=== PATIENT | male | born 1975 | race Caucasian/White ===

== ENCOUNTER 2017-07-15 10:36 | Emergency (ER) | payer BC ==
[~2017-07-15] VITALS: Ht 177.8 cm; Wt 72.7 kg
[~2017-07-15 10:36] MED LIST: CYCL-1 PO
[2017-07-15 10:47] VITALS: BP 138/81
[2017-07-15] MEDS ORDERED: HYDR-565 PO (12:32)
== END 2017-07-15 12:50 | disposition home or self-care (01) ==
LOC: ER 10:36
DX: S92.321A Displaced fracture of second metatarsal bone, right foot, initial encounter for closed fracture (principal); S92.331A Displaced fracture of third metatarsal bone, right foot, initial encounter for closed fracture; S92.341A Displaced fracture of fourth metatarsal bone, right foot, initial encounter for closed fracture; W22.8XXA Striking against or struck by other objects, initial encounter; Y93.89 Activity, other specified; Y92.89 Other specified places as the place of occurrence of the external cause; Y99.8 Other external cause status
CPT/HCPCS: 29515; 73630; 99284; A6449

== ENCOUNTER 2017-07-24 13:39 | Outpatient (CLI) | payer BC ==
[2017-07-24 13:55] VITALS: BP 131/79
== END 2017-07-24 14:25 | disposition home or self-care (01) ==
LOC: ORTHO 13:39
PROVIDERS: ATTEND Nurse Practitioner Family
DX: S92.344 Nondisplaced fracture of fourth metatarsal bone, right foot (principal); W18.43XA Slipping, tripping and stumbling without falling due to stepping from one level to another, initial encounter; Y93.89 Activity, other specified; Y92.018 Other place in single-family (private) house as the place of occurrence of the external cause

== ENCOUNTER 2017-08-14 14:27 | Outpatient (CLI) | payer BC ==
[2017-08-14 14:35] VITALS: BP 138/87
== END 2017-08-14 14:50 | disposition home or self-care (01) ==
LOC: ORTHO 14:27
PROVIDERS: ATTEND Nurse Practitioner Family
DX: S92.321G Displaced fracture of second metatarsal bone, right foot, subsequent encounter for fracture with delayed healing (principal); S92.331D Displaced fracture of third metatarsal bone, right foot, subsequent encounter for fracture with routine healing; F17.210 Nicotine dependence, cigarettes, uncomplicated; F12.90 Cannabis use, unspecified, uncomplicated; X58.XXXD Exposure to other specified factors, subsequent encounter
CPT/HCPCS: 73630

== ENCOUNTER 2017-09-11 13:52 | Outpatient (CLI) | payer BC ==
[2017-09-11 13:54] VITALS: BP 123/81
== END 2017-09-11 14:40 | disposition home or self-care (01) ==
LOC: ORTHO 13:52
PROVIDERS: ATTEND Nurse Practitioner Family
DX: S92.321G Displaced fracture of second metatarsal bone, right foot, subsequent encounter for fracture with delayed healing (principal); F17.210 Nicotine dependence, cigarettes, uncomplicated; X58.XXXD Exposure to other specified factors, subsequent encounter
CPT/HCPCS: 73630; 99213

== ENCOUNTER 2017-10-09 11:23 | Outpatient (CLI) | payer BC | END 2017-10-09 11:50 | disposition home or self-care (01) | LOC: ORTHO 11:23 | PROVIDERS: ATTEND Nurse Practitioner Family | DX: S92.344D Nondisplaced fracture of fourth metatarsal bone, right foot, subsequent encounter for fracture with routine healing (principal); S92.334D Nondisplaced fracture of third metatarsal bone, right foot, subsequent encounter for fracture with routine healing; S92.324D Nondisplaced fracture of second metatarsal bone, right foot, subsequent encounter for fracture with routine healing; F17.210 Nicotine dependence, cigarettes, uncomplicated; X58.XXXD Exposure to other specified factors, subsequent encounter | CPT/HCPCS: 73630; 99213 ==

== ENCOUNTER 2017-11-08 11:26 | Outpatient (CLI) | payer BC ==
[2017-11-08 11:32] VITALS: BP 125/71
== END 2017-11-08 12:25 | disposition home or self-care (01) ==
LOC: ORTHO 11:26
PROVIDERS: ATTEND Nurse Practitioner Family
DX: S92.354D Nondisplaced fracture of fifth metatarsal bone, right foot, subsequent encounter for fracture with routine healing (principal); S92.334D Nondisplaced fracture of third metatarsal bone, right foot, subsequent encounter for fracture with routine healing; S92.324D Nondisplaced fracture of second metatarsal bone, right foot, subsequent encounter for fracture with routine healing; F12.90 Cannabis use, unspecified, uncomplicated; F17.200 Nicotine dependence, unspecified, uncomplicated; X58.XXXD Exposure to other specified factors, subsequent encounter
CPT/HCPCS: 73630; 99213